=== PATIENT | male | born 1980 | race Caucasian/White ===

== ENCOUNTER → 2017-01-07 | Emergency (ER) | payer MEDICAID ==
[~2017-01-07] VITALS: Ht 152.4 cm; Wt 72.6 kg
[~2017-01-07] MED LIST: EPINEPHrine 0.1 MG/ML 10 ML (HOSPIRA) SYR IJ ONE
[2017-01-07 23:38] VITALS: BP 0/0
== END | disposition expired ==
LOC: EDUNIT# 21:02 → ER 21:03
DX: I46.9 Cardiac arrest, cause unspecified (principal)
CPT/HCPCS: 31500; 93041; 99291